=== PATIENT | female | born 1975 | race African-American/Black ===

== ENCOUNTER → 2017-03-13 | Outpatient (REF) ==
[~2017-03-13] MED LIST: NAPROSYN375 MG PO; NO HOME MEDICATIONS
== END ==
LOC: WSOH 13:29
DX: Z00.00 Encounter for general adult medical examination without abnormal findings (principal)

== ENCOUNTER → 2020-05-08 | Outpatient (CLI) | payer OTHER | LOC: MC.RAD 14:45 | DX: Z12.31 Encounter for screening mammogram for malignant neoplasm of breast (principal) ==

== ENCOUNTER 2021-03-02 14:00 | Emergency (ER) | payer SELFPAY ==
[~2021-03-02] VITALS: Ht 165.1 cm; Wt 68.2 kg
[2021-03-02 14:08] VITALS: TEMP 98.3
[2021-03-02] MEDS ORDERED: ZITHROMAX Z PA250 MG PO (15:22)
[2021-03-02 16:02] VITALS: BP 131/85; PULSE 79
== END 2021-03-02 16:02 | disposition home or self-care (01) ==
LOC: COL.ER 14:00
DX: J40 Bronchitis, not specified as acute or chronic (principal); Z87.891 Personal history of nicotine dependence

== ENCOUNTER 2022-05-25 16:12 | Emergency (ER) | payer SELFPAY ==
[~2022-05-25] VITALS: Ht 165.1 cm; Wt 68.2 kg
[~2022-05-25 16:12] MED LIST changes: +ZITHROMAX Z PA250 MG PO
[2022-05-25 16:24] VITALS: TEMP 98.3
[2022-05-25 17:22] LABS: COLLECTION METHOD CLEAN CATCH
[2022-05-25 17:25] LABS: BASO % 0.6 % (0.0-2.0); EOS # 0.1 K/mm3 (0.0-0.7); EOS % 0.7 % (0.0-4.0); GRAN # 4.2 K/mm3 (1.4-6.5); GRAN % 59.9 % (42.2-75.2); HEMATOCRIT 42.4 % (37.0-47.0); LYMPH # 2.1 K/mm3 (1.2-3.4); LYMPH % 30.4 % (20.0-51.0); MEAN CELL VOLUME 83 fl (80.0-100.0); MEAN CORPUSCULAR HEMOGLOBIN 27 pg (27-31); MEAN CORPUSCULAR HGB CONC 33 g/dl (33.0-37.0); MEAN PLATELET VOLUME 11.3 fl (7.4-10.4); MONO # 0.6 K/mm3 (0.1-0.6); PLATELET COUNT 267 K/mm3 (130-400); RED BLOOD COUNT 5.13 M/mm3 (4.10-5.30)
[2022-05-25 17:41] LABS: ALBUMIN 3.9 gm/dL (3.5-5.0); BILIRUBIN,TOTAL 0.3 mg/dL (0.2-1.2); CALCIUM 9.3 mg/dL (8.4-10.2); CREATININE, serum 1.11 mg/dL (0.57-1.11); PH 5.5 (5.0-8.5); POTASSIUM 4.2 mmol/L (3.5-4.5); TOTAL PROTEIN 7.9 gm/dL (6.2-8.1); URINE APPEARANCE Cloudy (CLEAR/HAZY); URINE BLOOD TRACE-INTACT (NEGATIVE); URINE COLOR Yellow (YELLOW); URINE GLUCOSE 3+ (NEGATIVE); URINE KETONE TRACE (NEGATIVE); URINE NITRATE Negative (NEGATIVE); URINE PROTEIN(semi-quant) Negative (NEGATIVE); URINE UROBILINOGEN 0.2 E.U/dL (0.2-1.0)
[2022-05-25 18:01] LABS: MUCOUS Present (NOT PRESENT); TSH w REFLEX 1.732 uIU/mL (0.350-4.940); URINE BACTERIA None Seen /hpf (NONE SEEN)
[2022-05-25] MEDS ORDERED: GLUCOPHAGE500 MG/TAB PO (19:25)
[2022-05-25 20:16] VITALS: BP 168/88; PULSE 78
== END 2022-05-25 20:18 | disposition home or self-care (01) ==
LOC: COL.ER 16:12
PROVIDERS: Emergency Medicine
DX: E11.65 Type 2 diabetes mellitus with hyperglycemia (principal); Z28.310 Unvaccinated for COVID-19; Z79.84 Long term (current) use of oral hypoglycemic drugs
CPT/HCPCS: J7120